=== PATIENT | female | born 1960 | race Caucasian/White ===

== ENCOUNTER 2020-07-28 08:33 | Emergency (ER) | payer MEDICARE, MEDICAID, SELFPAY ==
[2020-07-28 08:53] VITALS: BP 124/82; PULSE 84; RESP 18; TEMP 36.8; O2SAT 99; BMI 21.7
--- NOTE | 2020-07-28 09:19 | ED.ANIMALBIT ---
HPI - Animal Bite General Chief Complaint: Animal Bite Stated Complaint: dog bite Time Seen by Provider: 07/28/20 08:48 History of Present Illness HPI narrative: Patient complains of dog bites to the left hand and forearm sustained last night 10 hours ago from a neighbor's dog the dog is known and they believe it is up-to-date on rabies shots and the dog can be observed, patient is up-to-date on tetanus immunization, no joint pain no redness no discharge from wound Related Data Previous Rx's Medication Instructions Recorded amoxicillin-pot clavulanate 1 tab PO BID 5 Days #10 tab 07/28/20 [Augmentin] Allergies Allergy/AdvReac Type Severity Reaction Status Date / Time oxycodone Allergy Itching Verified 07/28/20 08:57 Review of Systems Review of Systems: Positive for dog bite left forearm and left hand Negatives are no fever no chills no dizziness no discharge from wound no swelling no numbness weakness or tingling no joint pains Yes all other systems are reviewed and are negative [facility] Past Medical History Source: nursing notes reviewed Social History Social History Advance Directives: Yes Advance Directives Information Provided: No Advance Directives on File: No Physical Exam Vital Signs: Vital Signs: Last Vital Signs Temp 98.3 F 07/28/20 08:53 Pulse 84 07/28/20 08:53 Resp 18 07/28/20 08:53 BP 124/82 07/28/20 08:53 Pulse Ox 99 07/28/20 08:53 Body Mass Index 21.7 General appearance no acute distress come and cooperative The head is normocephalic and matted Neck is supple Respiratory no distress Extremities the left forearm has a 2 cm laceration with subcutaneous tissue visible, there are multiple abrasions or superficial dog bite gant on the dorsum of the left hand and on the forearm, there is no redness no warmth no discharge no swelling no red stripe up arm no difficulty flexing and extending all fingers and the wrist has full range of motion, fingers have full range of motion and elbow has full range of motion, there is no redness or swelling over any joint and neurovascular is intact distal, tendon function is normal with full flexion and extension in all fingers Neuro no focal deficits Course Course Course Narrative: Procedure note 2 cm left forearm dorsal laceration which is 10 hours old is cleansed and irrigated with normal saline and then loosely reapproximated with Steri-Strips, dressing applied Patient is advised to confirm rabies immunization status of the dog which belongs to a neighbor who is well known to them and there are informed if they cannot confirm rabies immunization in the dog that the dog needs to be observed and get sick or dies within the next 10 days they should return for rabies immunization patient is up-to-date on tetanus immunization and is started on prophylactic antibiotic Augmentin Discharge Plan Discharge Clinical Impression: Dog bite Qualifiers: Encounter type: initial encounter Qualified Code(s): W54.0XXA - Bitten by dog, initial encounter Patient Disposition: Home, Self-Care Additional Instructions: You can remove Steri-Strips in 4-5 days Return to ER any time for spreading redness, pain or swelling, discharge from wound, fever, red stripe up arm, any sign of infection any worse condition or any concerns Confirm that the dog that bit you is up-to-date on rabies immunization, if the dog dies or gets deathly ill within the next 10 days return to the ER for rabies shots Prescriptions: New amoxicillin-pot clavulanate [Augmentin] 875-125 mg tablet 1 tab PO BID 5 Days Qty: 10 RF: 0 Interventions: ED Discharge Assessment Last Done: 07/28/20 10:44 Discharge Date/Time: 07/28/20 10:45
[2020-07-28] MEDS: Amoxicillin/Potassium Clav 875 MG TABLET PO (09:37)
[2020-07-28] MEDS: Lidocaine HCl 1 % MPF 5 ML VIAL SUBCUT ×2 (09:37)
== END 2020-07-28 10:45 | disposition home or self-care (01) ==
PROVIDERS: Emergency Provider Emergency Medicine; PCP Hospitalist
DX: S60.572A Other superficial bite of hand of left hand, initial encounter (principal); M79.642 Pain in left hand; W54.0XXA Bitten by dog, initial encounter; Y93.9 Activity, unspecified; Y92.009 Unspecified place in unspecified non-institutional (private) residence as the place of occurrence of the external cause; Y99.9 Unspecified external cause status
CPT/HCPCS: 99283